=== PATIENT | female | born 1955 ===

== ENCOUNTER 2023-01-07 11:21 | Outpatient (AMB) | payer OTHER, SELFPAY ==
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
[2023-01-07 11:32] VITALS: BP 136/88; PULSE 88; RESP 14; O2SAT 93; BMI 26.0
== END 2023-01-07 12:01 | disposition home or self-care (01) ==
PROVIDERS: PCP Internal Medicine; Visit Provider Anesthesiology
DX: I73.9 Peripheral vascular disease, unspecified (principal); I87.2 Venous insufficiency (chronic) (peripheral); G89.4 Chronic pain syndrome; I73.1 Thromboangiitis obliterans [Buerger's disease]; G90.521 Complex regional pain syndrome I of right lower limb
CPT/HCPCS: 99204

== ENCOUNTER → 2023-01-07 11:21 | Outpatient (BNVA) | payer MEDICARE, SELFPAY | PROVIDERS: PCP Internal Medicine; Visit Provider Anesthesiology | DX: G90.521 Complex regional pain syndrome I of right lower limb (principal); G89.4 Chronic pain syndrome; I87.2 Venous insufficiency (chronic) (peripheral); I73.1 Thromboangiitis obliterans [Buerger's disease]; I73.9 Peripheral vascular disease, unspecified | CPT/HCPCS: 99202 ==